=== PATIENT | female | born 1955 | race Caucasian/White ===

== ENCOUNTER 2019-10-11 11:44 | Day surgery (SDC) | payer MEDICARE ==
[~2019-10-11] VITALS: Ht 165.1 cm; Wt 63.6 kg
[2019-10-11] MEDS ORDERED: LACTATED RINGERS 1,000 ML IV SCH (12:05)
[2019-10-11 12:14] VITALS: BP 134/64
[2019-10-11] MEDS ORDERED: OXYC-302 PO (12:21)
[2019-10-11] MEDS ORDERED: ONDA4TAB7 PO (12:21)
[2019-10-11] MEDS ORDERED: BUPIVACAINE/PF 0.5% ONE ×2 (12:46→12:47)
[2019-10-11] MEDS ORDERED: LIDOCAINE 1%, 20ML ONE (12:46)
[2019-10-11] MEDS ORDERED: MIDAZOLAM 1 MG/ML, 2ML ONE (13:52)
[2019-10-11] MEDS ORDERED: FENTANYL PF 250 MCG/5ML ONE (13:52)
[2019-10-11] MEDS ORDERED: APREPITANT 40 MG CAPSULE ONE (14:06)
[2019-10-11] MEDS ORDERED: ONDANSETRON 2MG/ML, 2ML ONE (15:06)
[2019-10-11] MEDS ORDERED: CEFAZOLIN 1,000 MG ONE (15:06)
[2019-10-11] MEDS ORDERED: DEXAMETHASONE 4 MG/ML, 1ML ONE (15:06)
[2019-10-11] MEDS ORDERED: PHENYLEPHRINE 10 MG/ML ONE (15:06)
[2019-10-11] MEDS ORDERED: PROPOFOL 50 ML ONE (15:23)
[2019-10-11] MEDS ORDERED: MEPERIDINE/PF 25MG/ML,1ML IVPush PRN (17:00)
[2019-10-11] MEDS ORDERED: PROMETHAZINE 25 MG/ML, 1ML IV PRN (17:00)
[2019-10-11] MEDS ORDERED: FENTANYL PF 100 MCG/2ML IV PRN (17:00)
[2019-10-11] MEDS ORDERED: HYDROmorphone 2 MG/ML, 1ML IVPush PRN (17:00)
[2019-10-11] MEDS ORDERED: OXYcodone 5 MG/5 ML ORAL.SOL UDC PO PRN (17:00)
[2019-10-11] MEDS ORDERED: ACETAMINOPHEN 325 MG TABLET PO PRN (17:00)
[2019-10-11] MEDS ORDERED: HALOPERIDOL 5 MG/ML IV PRN (17:00)
[2019-10-11] MEDS ORDERED: hydrALAzine 20 MG/ML, 1ML IV PRN (17:00)
== END 2019-10-11 19:21 | disposition home or self-care (01) ==
LOC: OUT 11:44
PROVIDERS: ATTEND Orthopaedic Surgery Foot and Ankle Surgery
DX: S82.842A Displaced bimalleolar fracture of left lower leg, initial encounter for closed fracture (principal); M93.272 Osteochondritis dissecans, left ankle and joints of left foot; G47.33 Obstructive sleep apnea (adult) (pediatric); Z72.89 Other problems related to lifestyle; Z88.2 Allergy status to sulfonamides; Z88.5 Allergy status to narcotic agent; Z82.3 Family history of stroke; Z82.49 Family history of ischemic heart disease and other diseases of the circulatory system; W17.89XA Other fall from one level to another, initial encounter; Y93.01 Activity, walking, marching and hiking; Y92.89 Other specified places as the place of occurrence of the external cause; Y99.8 Other external cause status
CPT/HCPCS: 27814; 29897; 64445; 64447; 73610; 93005; C1713; J0690; J1100; J2250; J2370; J2405; J2704; J3010; J7120; 76000